=== PATIENT | male | born 1960 | race Two or more races ===

== ENCOUNTER 2016-05-31 11:44 | Emergency (ER) | payer MEDICAID ==
[~2016-05-31] VITALS: Ht 167.6 cm; Wt 74.8 kg
[2016-05-31 11:53] VITALS: BP 166/89
[2016-05-31] MEDS ORDERED: predniSONE 20 MG TABLET ONE (12:15)
[2016-05-31] MEDS ORDERED: predniSONE 20 MG TABLET PO ONE (12:30)
== END 2016-05-31 12:27 | disposition home or self-care (01) ==
LOC: ER 11:47
DX: R21 Rash and other nonspecific skin eruption (principal)
CPT/HCPCS: 99283; A4606; J7512; Z7610

== ENCOUNTER 2019-12-17 09:13 | Emergency (ER) | payer MEDICAID, OTHER ==
[~2019-12-17] VITALS: Ht 167.6 cm; Wt 67.6 kg
--- NOTE | 2019-12-17 09:35 | NUR ---
pt with c/o left wrist pain s/p fall on 10/31/2019 and states he tripped and fell.
--- NOTE | 2019-12-17 09:48 | NUR ---
radiology at bedside for L wrist xray.
[2019-12-17 11:14] VITALS: BP 124/77
== END 2019-12-17 11:15 | disposition home or self-care (01) ==
LOC: ER 09:19
DX: S52.592A Other fractures of lower end of left radius, initial encounter for closed fracture (principal); S52.612A Displaced fracture of left ulna styloid process, initial encounter for closed fracture; V89.9XXA Person injured in unspecified vehicle accident, initial encounter; Y93.89 Activity, other specified; Y92.89 Other specified places as the place of occurrence of the external cause; Y99.8 Other external cause status
CPT/HCPCS: 73110